=== PATIENT | male | born 1945 | race Hispanic/Latino ===

== ENCOUNTER 2017-08-30 13:52 | Outpatient (CLI) | payer BC ==
--- OUTSIDE RECORDS SUMMARY | 2017-08-30 13:55 | XMS | Clinical Summary ---
:1945 Author Organization [facility] Address [address] [place] [id number] Phone Care Team Providers Name Role Phone , Primary Care Provider Unavailable Allergies Not on File Current Medications Not on file Active Problems Not on file Social History Tobacco Use Types Packs/Day Years Used Date Never Assessed Sex Assigned at Date Recorded Not on file Last Filed Vital Signs Not on file Plan of Treatment Not on file Results Not on filefrom Last 3 Months
--- NOTE | 2017-08-31 23:26 | OP ---
This is an arterial Doppler of the lower extremities performed on 08/30/2017. On the right, Doppler waveforms are normally peaked with a biphasic type signal throughout. Ankle brachial index is 0.95 . On the left, Doppler waveforms are normally peaked throughout with an ankle brachial index of 0. 98. IMPRESSION: Normal arterial Doppler and ultrasound.
== END 2017-08-30 13:53 | disposition home or self-care (01) ==
LOC: ULT 13:52
PROVIDERS: ATTEND Family Medicine
DX: R25.2 Cramp and spasm (principal)
CPT/HCPCS: 93922

== ENCOUNTER 2019-08-27 22:53 | Emergency (ER) | payer BC, MEDICARE ==
--- NOTE | 2019-08-27 23:35 | CT ---
CT BRAIN NONCONTRAST: DATE: 08/27/2019 HISTORY: 73-year-old male status post acute head trauma from fall FINDINGS: There is no evidence of acute intra-axial or extra-axial hemorrhage. There is no midline shift or any other mass effect. 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 There is no other extra-axial fluid collection. There is no evidence of obstructive hydrocephalus. Calvarium is intact. There is a broad region of hi gh attenuation and swelling at the superficial soft tissues of the right upper posterior parietal region. IMPRESSION: 1. No acute intracranial findings. 2. Acute, traumatic right parietal scalp hematoma.
--- NOTE | 2019-08-27 23:37 | CT ---
CT maxillofacial noncontrast: HISTORY: 73-year-old male status post acute facial trauma from fall FINDINGS: The orbits and paranasal sinuses are clear. No fracture is identified. IMPRESSION: Negative
[2019-08-28] MEDS ORDERED: Acetaminophen 500 MG TAB ONE (00:19)
== END 2019-08-28 00:16 | disposition home or self-care (01) ==
LOC: ERS 22:53
DX: S00.03XA Contusion of scalp, initial encounter (principal); I10 Essential (primary) hypertension; W19.XXXA Unspecified fall, initial encounter
CPT/HCPCS: 70450; 70486; 94760